=== PATIENT | female | born 1990 | race American Indian/Alaskan Native ===

== ENCOUNTER 2021-04-29 23:19 | Emergency (ER) | payer SELFPAY ==
[2021-04-29 23:45] VITALS: BP 132/74
[2021-04-30] MEDS ORDERED: KETOROLAC 30 MG/1 ML INJ IV STA (00:07)
[2021-04-30] MEDS ORDERED: diphenhydrAMINE 50 MG/ML VIAL IV STA (00:07)
[2021-04-30] MEDS ORDERED: METOCLOPRAMIDE 10 MG/2 ML INJ IV STA (00:07)
[2021-04-30] MEDS ORDERED: SODIUM CHLORIDE 0.9% 1000 ML 1,000 ML IV ONE (00:07)
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
== END 2021-04-30 01:30 | disposition home or self-care (01) ==
LOC: ED 23:19
DX: G43.909 Migraine, unspecified, not intractable, without status migrainosus (principal); K21.9 Gastro-esophageal reflux disease without esophagitis; M19.90 Unspecified osteoarthritis, unspecified site; Z91.040 Latex allergy status; Z91.041 Radiographic dye allergy status
CPT/HCPCS: 96361; 96374; 96375; 99282; J1200; J1885; J2765; J7030

== ENCOUNTER 2022-02-12 00:40 | Emergency (ER) | payer SELFPAY ==
[2022-02-12 00:51] VITALS: BP 142/88
== END 2022-02-12 03:26 | disposition left against medical advice (07) ==
LOC: ED 00:40
DX: K08.89 Other specified disorders of teeth and supporting structures (principal); Z53.21 Procedure and treatment not carried out due to patient leaving prior to being seen by health care provider